=== PATIENT | female | born 1970 | race African-American/Black ===

== ENCOUNTER 2022-12-09 10:59 | Emergency (ER) | payer MEDICARE ==
[~2022-12-09] VITALS: Ht 162.6 cm; Wt 84.0 kg
[2022-12-09 12:21] VITALS: BP 158/96
[2022-12-09] MEDS ORDERED: cefTRIAXone SOD 1,000 MG VL IM ONE (13:00)
[2022-12-09] MEDS ORDERED: AZIT500T66 PO (14:06)
[2022-12-09] MEDS ORDERED: LEVO500T31 PO (14:06)
[2022-12-09] MEDS ORDERED: BENZ100C19 PO (14:06)
== END 2022-12-09 14:14 | disposition left against medical advice (07) ==
LOC: ER 10:59
DX: J18.9 Pneumonia, unspecified organism (principal)
CPT/HCPCS: 71046; 96372; 99283; J0696

== ENCOUNTER 2023-01-02 17:14 | Emergency (ER) | payer MEDICARE, MEDICAID ==
[~2023-01-02] VITALS: Ht 162.6 cm; Wt 77.2 kg
[~2023-01-02 17:14] MED LIST: ALBUAER3 IN; CEPH-510 PO; FAMO20TA10 PO; FURO1TAB33 PO; GABA300C10 PO; LETR2.5T6 PO; METO25TA93 PO; POTA15TA12 PO
[2023-01-02 18:03] VITALS: BP 117/76
[2023-01-02] MEDS ORDERED: DexAMETHasone SOD PHOS 10MG/1ML VIAL INJ IV ONE (18:15)
[2023-01-02 18:56] LABS: Basophils # (auto) 0 10 ^3/uL (0-0.2); Basophils % (auto) 0.3 % (0.0-2.0); Eosinophils # (auto) 0 10 ^3/uL (0-0.8); Eosinophils % (auto) 0.7 % (0.0-7.0); Hematocrit 36.6 % (36.0-46.0); Hemoglobin 12.3 g/dL (12.2-16.2); Lymphocytes # (auto) 1.2 10 ^3/uL (0.4-5.4); Lymphocytes % (auto) 20.6 % (10.0-50.0); Mean Corpuscular Hemoglobin 27.3 pg (28.0-32.0); Mean Corpuscular Hgb Conc. 33.5 g/dL (32.0-36.0); Mean Corpuscular Volume 81.5 fL (80.0-100.0); Monocytes # (auto) 0.6 10 ^3/uL (0-1.3); Monocytes % (auto) 10.5 % (0.0-12.0); Neutrophils % (auto) 67.9 % (37.0-80.0); Red Cell Distribution Width 15.3 % (11.8-14.3); White Blood Cell 5.9 10^3/uL (4.4-10.8)
[2023-01-02 19:21] LABS: Albumin 3.2 g/dL (3.4-5.0); BUN/Creatinine Ratio 22.2; Bilirubin, Total 0.3 mg/dL (0.2-1.0); Magnesium 1.7 mg/dL (1.6-2.6); Potassium 4.3 mmol/L (3.5-5.1); Total Protein 7.5 g/dL (6.4-8.2)
[2023-01-02 19:32] LABS: CRP High Sensitivity 3.42 mg/dL (< 0.3)
[2023-01-02] MEDS ORDERED: HYDROcodone-ACET 5/325MG TAB PO ONE (22:15)
== END 2023-01-02 22:31 | disposition left against medical advice (07) ==
LOC: ER 17:14
DX: C79.31 Secondary malignant neoplasm of brain (principal); C22.8 Malignant neoplasm of liver, primary, unspecified as to type; C79.51 Secondary malignant neoplasm of bone; J90 Pleural effusion, not elsewhere classified; I10 Essential (primary) hypertension; R51.9 Headache, unspecified; F17.210 Nicotine dependence, cigarettes, uncomplicated; Z53.29 Procedure and treatment not carried out because of patient's decision for other reasons; Z88.6 Allergy status to analgesic agent
CPT/HCPCS: 36415; 70450; 71045; 80053; 83605; 83735; 83880; 84484; 85025; 86141; 96365; 96375; 99285; J1100; J1953; J7060